=== PATIENT | female | born 1980 | race African-American/Black ===

== ENCOUNTER 2022-08-07 12:38 | Emergency (ER) | payer OTHER ==
[2022-08-07] MEDS ORDERED: ACETAMINOPHEN 1000 MG/100 ML BAG IVPB ONE (13:01)
[2022-08-07] MEDS ORDERED: IBUPROFEN 800 MG/8 ML IJ IVPB ONE (13:01)
[2022-08-07] MEDS ORDERED: morphine SULFATE 4 MG/ML VIAL IVPUSH ONE (13:07)
[2022-08-07] MEDS ORDERED: morphine CARPU-JECT 4 MG/1 ML DISP.SYRIN IVPUSH ONE (13:07)
[2022-08-07 13:19] VITALS: BP 220/100; PULSE 98; RESP 18; TEMP 97.9; BMI 26.6
[2022-08-07 13:43] LABS: BASO % 0.5 % (0-2.0); EOS % 1.5 % (0-4.5); HEMATOCRIT 38.1 % (32.4-45.2); HEMOGLOBIN 12.3 GM/dL (10.7-15.3); LYMPH % 28.7 % (8-40); MCH 27.5 pg (25.7-33.7); MCHC 32.4 g/dl (32.0-36.0); MEAN PLT VOLUME 7.7 fl (7.5-11.1); MONO % 9.2 % (3.8-10.2); NEUT % 60.1 % (42.8-82.8); RBC 4.49 M/mm3 (3.60-5.2); RDW 16.3 % (11.6-15.6); WHITE BLOOD COUNT 10.3 K/mm3 (4.0-10.0)
[2022-08-07 13:44] LABS: INR 1.1 (0.83-1.09); PROTHROMBIN TIME (PATIENT) 12.7 SEC (9.7-13.0)
[2022-08-07] MEDS ORDERED: morphine SULFATE 4 MG/ML VIAL ONE (14:04)
[2022-08-07] MEDS ORDERED: HYDROmorphone HCL CARPU-JECT 2 MG/1 ML DISP.SYRIN IVPUSH ONE (14:17)
[2022-08-07 14:18] LABS: CALCIUM 9.1 mg/dL (8.5-10.1)
[2022-08-07] MEDS ORDERED: HYDROmorphone HCl 2 MG/ML VIAL ONE (14:18)
[2022-08-07 14:19] LABS: ALBUMIN 3.9 g/dl (3.4-5.0); BLOOD UREA NITROGEN 10.2 mg/dL (7-18)
[2022-08-07] MEDS ORDERED: LIDOCAINE HCL 2% (20ML MULTI-DOSE VIAL) ONE (14:19)
[2022-08-07 14:22] LABS: CREATININE 0.9 mg/dL (0.55-1.3)
[2022-08-07 14:23] LABS: BILIRUBIN,TOTAL 0.4 mg/dL (0.2-1)
== END 2022-08-07 16:38 | disposition home or self-care (01) ==
LOC: JER 12:38
PROC: 3E033NZ Introduction of Analgesics, Hypnotics, Sedatives into Peripheral Vein, Percutaneous Approach (ICD-10-PCS; principal; 2022-08-07)
PROC: 3E033GC Introduction of Other Therapeutic Substance into Peripheral Vein, Percutaneous Approach (ICD-10-PCS; 2022-08-07)
PROC: 3E033GC Introduction of Other Therapeutic Substance into Peripheral Vein, Percutaneous Approach (ICD-10-PCS; 2022-08-07)
PROC: 3E033GC Introduction of Other Therapeutic Substance into Peripheral Vein, Percutaneous Approach (ICD-10-PCS; 2022-08-07)
DX: S82.892A Other fracture of left lower leg, initial encounter for closed fracture (principal)
CPT/HCPCS: 36415; 73590-TC-LT-FY; 73610-TC-LT-FY; 73630-TC-LT; 80053; 85025; 85610; 85730; 86850; 86900; 86901; 99284-25

== ENCOUNTER 2022-08-12 06:12 | Day surgery (SDC) | payer OTHER ==
[2022-08-08 14:45] VITALS: BMI 30.9
[2022-08-12] MEDS ORDERED: BUPIVACAINE HCL/PF 0.5% (5 MG/ML) 30 ML VIAL IJ ONE (07:50)
[2022-08-12] MEDS ORDERED: MIDAZOLAM HCL 2 MG/2 ML SINGLE DOSE VIAL ONE (07:50)
[2022-08-12] MEDS ORDERED: PROPOFOL 40 ML ONE (08:06)
[2022-08-12] MEDS ORDERED: DEXAMETHASONE SOD PHOSPHATE 4 MG/1 ML VIAL ONE (09:17)
[2022-08-12] MEDS ORDERED: KETOROLAC TROMETHAMINE 30 MG/1 ML VIAL ONE (09:17)
[2022-08-12] MEDS ORDERED: ONDANSETRON 4 MG/2 ML VIAL ONE (09:17)
[2022-08-12] MEDS ORDERED: ceFAZolin SODIUM 1 GM VIAL ONE (09:17)
[2022-08-12] MEDS ORDERED: HYDROmorphone HCL/PF 1 MG/ML VIAL ONE ×2 (10:27→10:55)
[2022-08-12] MEDS ORDERED: ONDANSETRON 4 MG/2 ML VIAL IVPUSH PRN (11:45)
[2022-08-12] MEDS ORDERED: PROMETHAZINE HCL 25 MG/1 ML VIAL IVPUSH PRN (11:45)
[2022-08-12] MEDS ORDERED: oxyCODONE HCL 5 MG TABLET PO PRN ×2 (11:45)
[2022-08-12 12:31] VITALS: RESP 18
[2022-08-12 12:39] VITALS: PULSE 64
[2022-08-12 12:51] VITALS: TEMP 97.4
[2022-08-12 13:25] VITALS: BP 130/65
== END 2022-08-12 13:25 | disposition home or self-care (01) ==
LOC: FASU 06:12
PROVIDERS: ATTEND Orthopaedic Surgery Sports Medicine
PROC: 0QSH04Z Reposition Left Tibia with Internal Fixation Device, Open Approach (ICD-10-PCS; 2022-08-12)
PROC: 0QSH04Z Reposition Left Tibia with Internal Fixation Device, Open Approach (ICD-10-PCS; 2022-08-12)
PROC: 0QSK04Z Reposition Left Fibula with Internal Fixation Device, Open Approach (ICD-10-PCS; principal; 2022-08-12 09:54)
DX: S82.852A Displaced trimalleolar fracture of left lower leg, initial encounter for closed fracture (principal); X58.XXXA Exposure to other specified factors, initial encounter; Y93.9 Activity, unspecified; Y92.9 Unspecified place or not applicable
CPT/HCPCS: 27822; C1713; 73610-TC-LT-FY; 81025; 94760